=== PATIENT | female | born 1995 | race Caucasian/White ===

== ENCOUNTER → 2019-10-26 | Outpatient (CLI) | payer OTHER ==
--- NOTE | 2019-10-26 19:55 | REP ---
Clinical: Trauma. Technique: Five views of the right and left hemithorax. Findings: Frontal view of the chest demonstrates no acute cardiopulmonary process. Multiple views of the right and left hemithorax demonstrates no obvious acute rib fracture or pathology. Impression: Normal bilateral rib series Electronically Signed by Emeterio Lo MD 10/26/2019 07:45 P
== END ==
LOC: M RAD 18:44
PROVIDERS: ATTEND Physician Assistant
DX: R07.81 Pleurodynia (principal)

== ENCOUNTER 2020-02-04 11:59 | Emergency (ER) | payer OTHER ==
[~2020-02-04] VITALS: Ht 165.1 cm; Wt 74.2 kg
[2020-02-04] MEDS ORDERED: MEDR150I10 (12:05)
[2020-02-04] MEDS ORDERED: DEXM1CAP16 (12:05)
[2020-02-04] MEDS ORDERED: ESCI5SOL3 (12:05)
[2020-02-04] MEDS ORDERED: HYDR10EL (12:05)
[2020-02-04] MEDS ORDERED: ADACEL/BOOSTRIX VACCINE (DIPHTH/PERTUSS/ACELL/TETANUS)0.5ML SYR (90715) IM ONE (12:45)
[2020-02-04] MEDS ORDERED: FLAG500T PO (12:52)
[2020-02-04] MEDS ORDERED: DOXY-350 PO (12:52)
[2020-02-04 13:19] VITALS: BP 133/91
== END 2020-02-04 13:20 | disposition home or self-care (01) ==
LOC: M ED 11:59
DX: S61.432A Puncture wound without foreign body of left hand, initial encounter (principal); W54.0XXA Bitten by dog, initial encounter; Y92.099 Unspecified place in other non-institutional residence as the place of occurrence of the external cause; Y93.89 Activity, other specified; Y99.9 Unspecified external cause status; D68.59 Other primary thrombophilia; F90.9 Attention-deficit hyperactivity disorder, unspecified type; F41.9 Anxiety disorder, unspecified; Z79.899 Other long term (current) drug therapy; Z88.0 Allergy status to penicillin